=== PATIENT | female | born 1990 | race Caucasian/White ===

== ENCOUNTER 2016-12-13 15:09 | Emergency (ER) | payer BC, OTHER ==
--- NOTE | 2016-12-13 16:28 | EDM.PDOC ---
ED HPI GENERAL MEDICAL PROBLEM - General Chief Complaint: Gastrointestinal Problem Stated Complaint: VOMITING Time Seen by Provider: 12/13/16 15:25 Source of Information: Reports: Patient, Family History Limitations: Reports: No Limitations - History of Present Illness INITIAL COMMENTS - FREE TEXT/NARRATIVE: HISTORY AND PHYSICAL: History of present illness: [Patient comes to the emergency room complaining of nausea and vomiting for the past 3 days primarily in the mornings. 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 LMP 11/11/2016. questions if she is . She denies fever and chills, other symptoms of illness or infection, chest pain, shortness of breath and difficulty breathing. No cough, constipation or diarrhea. No burning with urination or blood in her urine. She is otherwise feeling well.] Review of systems: As per history of present illness and below otherwise all systems reviewed and negative. Past medical history: As per history of present illness and as reviewed below otherwise noncontributory. Surgical history: As per history of present illness and as reviewed below otherwise noncontributory. Social history: No reported history of drug or alcohol abuse. Family history: As per history of present illness and as reviewed below otherwise noncontributory. Physical exam: HEENT: Atraumatic, normocephalic. Oral mucous membranes are pink and moist. No tonsillar swelling erythema or exudate. Lungs: Clear to auscultation, breath sounds equal bilaterally. Heart: S1S2, regular rate and rhythm. Abdomen: Bowel sounds are normoactive throughout. Abdomen is soft nondistended, nontender. Negative for masses, guarding or rebound. Pelvis: Stable nontender. Genitourinary: Deferred. Rectal: Deferred. Extremities: Atraumatic, negative for cords or calf pain. Neurovascular unremarkable. Neuro: Awake, alert, oriented. Motor and sensory unremarkable throughout. Exam nonfocal. Diagnostics: [Urine ] Impression: [Nausea and vomiting] Plan: [Discussed with patient that her urine test is negative. Recommend she push fluids and avoid dairy. We reviewed that gastrointestinal viruses are occurring frequently in the community. Good handwashing, plenty of rest, push fluids symptoms should resolve without any complication. Follow-up with PCP. Strict return precautions are reviewed.] Definitive disposition and diagnosis as appropriate pending reevaluation and review of above. headache Pain Score (Numeric/FACES): 8 - Related Data Allergies Allergy/AdvReac Type Severity Reaction Status Date / Time No Known Allergies Allergy Verified 12/13/16 15:21 Home Meds: Home Meds . 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 Musculoskeletal History: Reports: None Neurological History: Reports: None Psychiatric History: Reports: None Endocrine/Metabolic History: Reports: None Hematologic History: Reports: None Immunologic History: Reports: None Oncologic (Cancer) History: Reports: None Dermatologic History: Reports: None - Infectious Disease History Infectious Disease History: Reports: None - Past Surgical History Head Surgeries/Procedures: Reports: None Social & Family History - Family History Family Medical History: Noncontributory - Tobacco Use Smoking Status *Q: Never Smoker - Caffeine Use Caffeine Use: Reports: None - Recreational Drug Use Recreational Drug Use: No ED ROS GENERAL - Review of Systems Review Of Systems: ROS reveals no pertinent complaints other than HPI. ED EXAM, GI/ABD - Physical Exam Exam: See Below Course - Vital Signs Last Recorded V/S: Last Vital Signs Temp 97.7 F 12/13/16 15:21 Pulse 112 H 12/13/16 15:21 Resp 18 12/13/16 15:21 BP 138/83 12/13/16 15:21 Pulse Ox 98 12/13/16 15:21 - Orders/Labs/Meds Labs: Laboratory Tests 12/13/16 Range/Units 15:42 Urine HCG, Qual NEGATIVE (NEGATIVE) Departure - Departure Time of Disposition: 14:30 Disposition: Home, Self-Care 01 Condition: Good Clinical Impression: Vomiting - Discharge Information Instructions: Nausea and Vomiting, Adult, [id number] Referrals: PCP,None [Primary Care Provider] - Forms: ED Department Discharge Additional Instructions: The following information is given to patients seen in the emergency department who are being discharged to home. This information is to outline your options for follow-up care. We provide all patients seen in our emergency department with a follow-up referral. The need for follow-up, as well as the timing and circumstances, are variable depending upon the specifics of your emergency department visit. If you don't have a primary care physician on staff, we will provide you with a referral. We always advise you to contact your personal physician following an emergency department visit to inform them of the circumstance of the visit and for follow-up with them and/or the need for any referrals to a consulting specialist. The emergency department will also refer you to a specialist when appropriate. This referral assures that you have the opportunity for follow-up care with a specialist. All of these measure are taken in an effort to provide you with optimal care, which includes your follow-up. Under all circumstances we always encourage you to contact your private physician who remains a resource for coordinating your care. When calling for follow-up care, please make the office aware that this follow-up is from your recent emergency room visit. If for any reason you are refused follow-up, please contact the [facility] emergency department at and asked to speak to the emergency department charge nurse. [facility] [address] [place] [id number] Establish care with a provider at the clinic listed above and follow-up there next week. Your test is negative. You are not . Push fluids, get plenty of rest. Return to ER as needed as discussed.
== END 2016-12-13 16:34 | disposition home or self-care (01) ==
LOC: MW.ED 15:09
DX: R11.2 Nausea with vomiting, unspecified (principal)
CPT/HCPCS: 81025; 99282; 99283

== ENCOUNTER 2017-03-08 21:11 | Emergency (ER) | payer BC, OTHER ==
--- NOTE | 2017-03-08 21:24 | EDM.PDOC ---
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 Past medical history: As per history of present illness and as reviewed below otherwise noncontributory. Surgical history: As per history of present illness and as reviewed below otherwise noncontributory. Social history: No reported history of drug or alcohol abuse. Family history: As per history of present illness and as reviewed below otherwise noncontributory. Physical exam: HEENT: Atraumatic, normocephalic, pupils reactive, negative for conjunctival pallor or scleral icterus, mucous membranes moist, throat clear, neck supple, nontender, trachea midline. Lungs: Clear to auscultation, breath sounds equal bilaterally, chest nontender. Heart: S1S2, regular, negative for clicks, rubs, or JVD. Abdomen: Soft, nondistended, nontender. Negative for masses or hepatosplenomegaly. Negative for costovertebral tenderness. Pelvis: Stable nontender. Genitourinary: Deferred. Rectal: Deferred. Extremities: Atraumatic, negative for cords or calf pain. Neurovascular unremarkable. Neuro: Awake, alert, oriented. Cranial nerves II through XII unremarkable. Cerebellum unremarkable. Motor and sensory unremarkable throughout. Exam nonfocal. Diagnostics: UA C&S ABO Rh CBC Therapeutics: None Impression: #1 first trimester bleeding #2 threatened Definitive disposition and diagnosis as appropriate pending reevaluation and review of above. 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 Musculoskeletal History: Reports: None Neurological History: Reports: None Psychiatric History: Reports: None Endocrine/Metabolic History: Reports: None Hematologic History: Reports: None Immunologic History: Reports: None Oncologic (Cancer) History: Reports: None Dermatologic History: Reports: None - Infectious Disease History Infectious Disease History: Reports: None - Past Surgical History Head Surgeries/Procedures: Reports: None Social & Family History - Family History Family Medical History: Noncontributory - Tobacco Use Smoking Status *Q: Never Smoker - Caffeine Use Caffeine Use: Reports: None - Recreational Drug Use Recreational Drug Use: No ED ROS GENERAL - Review of Systems Review Of Systems: ROS reveals no pertinent complaints other than HPI. ED EXAM, GENERAL - Physical Exam Exam: See Below (See dictation) Course - Vital Signs Last Recorded V/S: Last Vital Signs Temp 36.9 C 03/08/17 21:19 Pulse 128 H 03/08/17 21:19 Resp 14 03/08/17 21:19 BP 131/93 H 03/08/17 21:19 Pulse Ox 100 03/08/17 21:19 - Orders/Labs/Meds Orders: Active Orders 24 hr Category Date Time Status CULTURE URINE [RM] Stat Lab 03/08/17 21:34 Received Labs: Laboratory Tests 03/08/17 03/08/17 03/08/17 Range/Units 21:31 21:31 21:34 WBC 7.51 (4.0-11.0) K/uL RBC 4.61 (4.30-5.90) M/uL Hgb 9.7 L (12.0-16.0) g/dL Hct 29.7 L (36.0-46.0) % MCV 64.4 L (80.0-98.0) fL MCH 21.0 L (27.0-32.0) pg MCHC 32.7 (31.0-37.0) g/dL RDW Std Deviation 54.2 (28.0-62.0) fl RDW Coeff of Karl 24 H (11.0-15.0) % Plt Count 323 (150-400) K/uL MPV 9.50 (7.40-12.00) fL Neut % (Auto) 51.1 (48.0-80.0) % Lymph % (Auto) 39.4 (16.0-40.0) % [place] % (Auto) 8.0 (0.0-15.0) % Eos % (Auto) 1.2 (0.0-7.0) % Baso % (Auto) 0.3 (0.0-1.5) % Neut # (Auto) 3.8 (1.4-5.7) K/uL Lymph # (Auto) 3.0 H (0.6-2.4) K/uL [place] # (Auto) 0.6 (0.0-0.8) K/uL Eos # (Auto) 0.1 (0.0-0.7) K/uL Baso # (Auto) 0.0 (0.0-0.1) K/uL Nucleated RBC % 0.0 /100WBC Nucleated RBCs # 0 K/uL Urine Color DARK YELLOW Urine Appearance SLT CLOUDY Urine pH 6.0 (5.0-8.0) Ur Specific [place] 1.025 (1.001-1.035) Urine Protein TRACE (NEGATIVE) mg/dL Urine Glucose (UA) NEGATIVE (NEGATIVE) mg/dL Urine Ketones TRACE H (NEGATIVE) mg/dL Urine Occult Blood LARGE H (NEGATIVE) Urine Nitrite NEGATIVE (NEGATIVE) Urine Bilirubin NEGATIVE (NEGATIVE) Urine Urobilinogen 0.2 (<2.0) EU/dL Ur Leukocyte Esterase TRACE (NEGATIVE) Urine RBC 20-30 (0-2/HPF) Urine WBC 3-5 (0-5/HPF) Ur Epithelial Cells FEW (NONE-FEW) Calcium Oxalate Crystal MANY (NEGATIVE) Urine Bacteria FEW (NEGATIVE) Blood Type A POSITIVE Departure - Departure Time of Disposition: 22:28 Disposition: Home, Self-Care 01 Condition: Good Clinical Impression: Threatened - Discharge Information Referrals: Joseph Torres MD [Primary Care Provider] - Forms: ED Department Discharge Additional Instructions: The following information is given to patients seen in the emergency department who are being discharged to home. This information is to outline your options for follow-up care. We provide all patients seen in our emergency department with a follow-up referral. The need for follow-up, as well as the timing and circumstances, are variable depending upon the specifics of your emergency department visit. If you don't have a primary care physician on staff, we will provide you with a referral. We always advise you to contact your personal physician following an emergency department visit to inform them of the circumstance of the visit and for follow-up with them and/or the need for any referrals to a consulting specialist. The emergency department will also refer you to a specialist when appropriate. This referral assures that you have the opportunity for followup care with a specialist. All of these measure are taken in an effort to provide you with optimal care, which includes your followup. Under all circumstances we always encourage you to contact your private physician who remains a resource for coordinating your care. When calling for followup care, please make the office aware that this follow-up is from your recent emergency room visit. If for any reason you are refused follow-up, please contact the [facility] emergency department at and asked to speak to the emergency department charge nurse. Vaginal rest follow-up APICULTURIST he has discussed return as needed as discussed - My Orders Last 24 Hours: My Active Orders 03/08/17 21:34 CULTURE URINE [RM] Stat - Assessment/Plan Last 24 Hours: My Active Orders 03/08/17 21:34 CULTURE URINE [RM] Stat
== END 2017-03-08 23:04 | disposition home or self-care (01) ==
LOC: MW.ED 21:11
DX: O20.0 Threatened abortion (principal); Z3A.01 Less than 8 weeks gestation of pregnancy
CPT/HCPCS: 36415; 81001; 85025; 86900; 86901; 87086; 99284

== ENCOUNTER 2017-08-26 10:59 | Inpatient (IN) | payer BC ==
[2017-08-26] MEDS ORDERED: Carboprost Tromethamine 250 MCG/1 ML Amp IM PRN (11:51)
[2017-08-26] MEDS ORDERED: Methylergonovine 0.2 MG/1 ML Amp IM PRN (11:51)
[2017-08-26] MEDS ORDERED: Lidocaine 1% 50 ML MDV INJECT PRN (11:51)
[2017-08-26] MEDS ORDERED: Sodium Chloride 0.9% 10 ML Syringe FLUSH PRN (11:51)
[2017-08-26] MEDS ORDERED: Sodium Chloride 0.9% 2.5 ML Syringe FLUSH PRN (11:51)
[2017-08-26] MEDS ORDERED: Terbutaline 1 MG/ML SDV SUBCUT PRN (11:51)
[2017-08-26] MEDS ORDERED: Water For Irrigation,Sterile 1,000 ML Container IRR PRN (11:51)
[2017-08-26] MEDS ORDERED: Tranexamic Acid 1,000 MG in Sodium Chloride 0.9% 100 ML IV PRN (11:51)
[2017-08-26] MEDS ORDERED: Misoprostol 200 MCG Tab PO PRN (11:51)
[2017-08-26] MEDS ORDERED: Oxytocin/0.9 % Sodium Chloride 30 UNIT/500 ML BAG IV SCH ×2 (12:00)
[2017-08-26] MEDS ORDERED: Misoprostol 25 MCG (1/4 of 100 MCG) Tab PO SCH (12:00)
[2017-08-26] MEDS ORDERED: Ampicillin 2 GM in Sodium Chloride 0.9% 100 ML IV ONE (12:00)
[2017-08-26] MEDS: Lactated Ringers 1,000 ML IV SCH (12:06)
--- NOTE | 2017-08-26 12:48 | PCM.LDHP ---
L&D History of Present Illness - General Date of Service: 08/26/17 Admit Problem/Dx: Patient Status Order with Admit Dx/Problem 08/26/17 11:51 Patient Status [ADT] Routine Admission Diagnosis/Problem Admission Diagnosis/Problem Planned 08/26/17 12:44 27 yo EDC 09/23/2017 36 0/7 A+, RI, GBS pos bacteruria. SROM 08/22/2017 clear. Source of Information: Patient History Limitations: Reports: No Limitations - History of Present Illness Improves with: Reports: None Worsens with: Reports: None Associated Symptoms: Reports: N - Related Data Allergies/Adverse Reactions: Allergies Allergy/AdvReac Type Severity Reaction Status Date / Time No Known Allergies Allergy Verified 08/26/17 11:40 Home Medications: Home Meds Vit #108/Iron/FA [ One Tablet] 1 each PO DAILY 03/08/17 [ History] Past Medical History - Past Health History Medical/Surgical History: Denies Medical/Surgical History HEENT History: Reports: None Cardiovascular History: Reports: None Respiratory History: Reports: None Gastrointestinal History: Reports: None Genitourinary History: Reports: 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: Musculoskeletal History: Reports: None Neurological History: Reports: None Psychiatric History: Reports: None Endocrine/Metabolic History: Reports: None Hematologic History: Reports: None, Anemia, Other (See Below) Other Hematologic History: during Immunologic History: Reports: None Oncologic (Cancer) History: Reports: None Dermatologic History: Reports: None - Infectious Disease History Infectious Disease History: Reports: None - Past Surgical History Head Surgeries/Procedures: Reports: None Social & Family History - Family History Family Medical History: Noncontributory - Tobacco Use Smoking Status *Q: Never Smoker Second Hand Smoke Exposure: No - Caffeine Use Caffeine Use: Reports: None - Recreational Drug Use Recreational Drug Use: No H&P Review of Systems - Review of Systems: Review Of Systems: See Below General: Reports: No Symptoms HEENT: Reports: No Symptoms Pulmonary: Reports: No Symptoms Cardiovascular: Reports: No Symptoms Gastrointestinal: Reports: No Symptoms Genitourinary: Reports: No Symptoms Musculoskeletal: Reports: No Symptoms Skin: Reports: No Symptoms Psychiatric: Reports: No Symptoms Neurological: Reports: No Symptoms Hematologic/Lymphatic: Reports: No Symptoms Immunologic: Reports: No Symptoms L&D Exam - Exam Exam: See Below - Vital Signs Weight: 69.4 kg - OB Specific Contraction Intensity: Mild Movement: Active Heart Tones: Present Heart Tones per Min: 155 Heart Rate (FHR) Variability: Moderate (6-25 bmp) Presentation: Vertex Estimated Weight: 3000 - Sullivan Score Sullivan Score Cervix Position: Posterior Sullivan Score Consistency: Firm Sullivan Score Effacement: 31-50% Sullivan Score Dilation: Closed Sullivan Score 's Station: -3 Sullivan Score Total: 1 - Exam General: Alert, Oriented, Cooperative HEENT: Hearing Intact Lungs: Clear to Auscultation, Normal Respiratory Effort Cardiovascular: Regular Rate, Regular Rhythm, Normal S1, Normal S2 GI/Abdominal Exam: Normal Bowel Sounds, Soft, Non-Tender, No Organomegaly, No Distention, No Abnormal Bruit, No Mass, Pelvis Stable Rectal Exam: Deferred Genitourinary: Normal external exam, Normal bimanual exam, Cervical fluid (clear ) Back Exam: Normal Inspection, Full Range of Motion Extremities: Normal Inspection, Normal Range of Motion, Non-Tender, No Pedal Edema, Normal Capillary Refill Skin: Warm, Dry, Intact Neurological: Cranial Nerves Intact, Reflexes Equal Bilateral, Strength Equal Bilateral, Normal Gait, Normal Speech, Normal Tone Psychiatric: Alert, Normal Affect, Normal Mood - Patient Data Lab Results Last 24 hrs: Laboratory Results - last 24 hr 08/26/17 Range/Units 12:05 WBC 7.70 (4.0-11.0) K/uL RBC 4.31 (4.30-5.90) M/uL Hgb 11.1 L (12.0-16.0) g/dL Hct 34.2 L (36.0-46.0) % MCV 79.4 L (80.0-98.0) fL MCH 25.8 L (27.0-32.0) pg MCHC 32.5 (31.0-37.0) g/dL RDW Std Deviation 67.2 H (28.0-62.0) fl RDW Coeff of Karl 23 H (11.0-15.0) % Plt Count 225 (150-400) K/uL MPV 9.90 (7.40-12.00) fL Nucleated RBC % 0.0 /100WBC Nucleated RBCs # 0 K/uL Result Diagrams: 08/26/17 12:05 - Problem List (1) premature rupture of membranes (PPROM) with unknown onset of labor SNOMED Code(s): 03775565723996519 ICD Code: O42.919 - PRETRM GONZALES ROM, UNSP TIME BETW RUPT AND ONST LABR, UNSP TRI Status: Acute Priority: High Current Visit: Yes (2) Supervision of normal IUP (intrauterine ) in primigravida SNOMED Code(s): 76301637, 602143013, 673415757, 716683139 ICD Code: Z34.00 - ENCNTR FOR SUPRVSN OF NORMAL FIRST , UNSP TRIMESTER Status: Acute Priority: High Current Visit: Yes Qualifiers: Trimester: third trimester Qualified Code(s): Z34.03 - Encounter for supervision of normal first , third trimester Problem List Initiated/Reviewed/Updated: Yes Orders Last 24hrs: Active Orders 24 hr Category Date Time Status Patient Status [ADT] Routine ADT 08/26/17 11:51 Active Bedrest Bathroom Privileges [RC] ASDIRECTED Care 08/26/17 11:51 Active Communication Order [RC] ASDIRECTED Care 08/26/17 11:51 Active Communication Order [RC] ASDIRECTED Care 08/26/17 11:51 Active Communication Order [RC] ASDIRECTED Care 08/26/17 11:51 Active Heart Tones [RC] CONTINUOUS Care 08/26/17 11:51 Active Non Stress Test [RC] PER UNIT ROUTINE Care 08/26/17 11:51 Active May Shower [RC] ASDIRECTED Care 08/26/17 11:51 Active Notify Provider [RC] PRN Care 08/26/17 11:51 Active Notify Provider [RC] PRN Care 08/26/17 11:51 Active Notify Provider [RC] PRN Care 08/26/17 11:51 Active Notify Provider [RC] STAT Care 08/26/17 11:51 Active Oxygen Therapy [RC] ASDIRECTED Care 08/26/17 11:51 Active Up ad Leonie [RC] ASDIRECTED Care 08/26/17 11:51 Active Vaginal Exam [RC] PRN Care 08/26/17 11:51 Active Vaginal Exam [RC] PRN Care 08/26/17 11:51 Active Vital Signs [RC] PER UNIT ROUTINE Care 08/26/17 11:51 Active Vital Signs [RC] PER UNIT ROUTINE Care 08/26/17 11:51 Active Regular Diet [DIET] Diet 08/26/17 Lunch Active TYPE AND SCREEN [BBK] Routine Lab 08/26/17 12:05 Received Carboprost Tromethamine [Hemabate DS] Med 08/26/17 11:51 Active 250 mcg IM ASDIRECTED PRN Lactated Ringers [Ringers, Lactated] 1,000 ml Med 08/26/17 12:00 Active IV ASDIRECTED Lidocaine 1% [Xylocaine 1%] Med 08/26/17 11:51 Active 50 ml INJECT .ONCE PRN Methylergonovine [Methergine] Med 08/26/17 11:51 Active 0.2 mg IM ASDIRECTED PRN Nalbuphine [Nubain] Med 08/26/17 11:51 Active 10 mg IVPUSH Q1H PRN Oxytocin/0.9 % Sodium Chloride [Oxytocin 30 Unit/500 ML Med 08/26/17 12:00 Active -NS] 30 unit in 500 ml IV TITRATE Oxytocin/0.9 % Sodium Chloride [Oxytocin 30 Unit/500 ML Med 08/26/17 12:00 Active -NS] 30 unit in 500 ml IV TITRATE Sodium Chloride 0.9% [Saline Flush] Med 08/26/17 11:51 Active 10 ml FLUSH ASDIRECTED PRN Sodium Chloride 0.9% [Saline Flush] Med 08/26/17 11:51 Active 2.5 ml FLUSH ASDIRECTED PRN Terbutaline [Brethine] Med 08/26/17 11:51 Active 0.25 mg SUBCUT ASDIRECTED PRN Tranexamic Acid [Cyklokapron] 1,000 mg Med 08/26/17 11:51 Active Sodium Chloride 0.9% [Normal Saline] 100 ml IV ONETIME Water For Irrigation,Sterile [Sterile Water for Med 08/26/17 11:51 Active Irrigation] 1,000 ml IRR ASDIRECTED PRN miSOPROStol [Cytotec] Med 08/26/17 11:51 Active 200 mcg PO .ONCE PRN miSOPROStol [Cytotec] Med 08/26/17 12:00 Active 25 mcg PO .ONCE miSOPROStol [Cytotec] Med 08/26/17 11:51 Active 25 mcg PO Q4H PRN Scalp Electrode [WOMSER] Per Unit Routine Oth 08/26/17 11:51 Ordered Medication Administration Instruction [OM.PC] Q3H Oth 08/26/17 12:00 Ordered Peripheral IV Insertion Adult [OM.PC] Routine Oth 08/26/17 11:51 Ordered Resuscitation Status Routine Resus Stat 08/26/17 11:51 Ordered Medication Orders Carboprost Tromethamine (Hemabate Ds) 250 mcg IM ASDIRECTED PRN PRN Reason: Post Hemorrhage Lactated Ringer's (Ringers, Lactated) 1,000 mls @ 150 mls/hr IV ASDIRECTED NANCY Last Admin: 08/26/17 12:06 Dose: 999 mls/hr Oxytocin/Sodium Chloride (Oxytocin 30 Unit/500 Ml-Ns) 30 unit in 500 mls @ 999 mls/hr IV TITRATE NANCY Oxytocin/Sodium Chloride (Oxytocin 30 Unit/500 Ml-Ns) 30 unit in 500 mls @ 2 mls/hr IV TITRATE NANCY; Protocol Tranexamic Acid 1,000 mg/ (Sodium Chloride) 110 mls @ 660 mls/hr IV ONETIME PRN PRN Reason: Bleeding Lidocaine HCl (Xylocaine 1%) 50 ml INJECT .ONCE PRN PRN Reason: Laceration repair Methylergonovine Maleate (Methergine) 0.2 mg IM ASDIRECTED PRN PRN Reason: Post Hemorrhage Misoprostol (Cytotec) 200 mcg PO .ONCE PRN PRN Reason: Post Hemorrhage Misoprostol (Cytotec) 25 mcg PO .ONCE NANCY Last Admin: 08/26/17 12:18 Dose: 25 mcg Misoprostol (Cytotec) 25 mcg PO Q4H PRN PRN Reason: Cervical Ripening Nalbuphine HCl (Nubain) 10 mg IVPUSH Q1H PRN PRN Reason: Pain (severe 7-10) Sodium Chloride (Saline Flush) 10 ml FLUSH ASDIRECTED PRN PRN Reason: Keep Vein Open Sodium Chloride (Saline Flush) 2.5 ml FLUSH ASDIRECTED PRN PRN Reason: Keep Vein Open Sterile Water (Sterile Water For Irrigation) 1,000 ml IRR ASDIRECTED PRN PRN Reason: delivery Terbutaline Sulfate (Brethine) 0.25 mg SUBCUT ASDIRECTED PRN PRN Reason: Tacysystole Assessment/Plan Comment:: PPROM - IOL A: 27 yo EDC 09/23/2017 36 0/7 A+, RI, GBS pos bacteruria. PPROM 08/22/2017 clear. P: Admit, antibiotics Amp 2gm now for PPROM and GBS +, Cytotec po to pitocin, pain meds prn, anticipate . Dr Torres updated on pt status.
[2017-08-26] MEDS: Ampicillin 1 GM in Sodium Chloride 0.9% 50 ML IV SCH ×2 (17:00→21:09)
[2017-08-26] MEDS: Misoprostol 25 MCG (1/4 of 100 MCG) Tab PO PRN ×2 (17:03→21:42)
[2017-08-26] MEDS: Nalbuphine 10 MG/ML 10 ML MDV IVPUSH PRN (19:33)
[2017-08-27] MEDS: Ampicillin 1 GM in Sodium Chloride 0.9% 50 ML IV SCH ×4 (01:22→22:40)
[2017-08-27] MEDS: Nalbuphine 10 MG/ML 10 ML MDV IVPUSH PRN ×2 (02:04→08:10)
[2017-08-27] MEDS: Lactated Ringers 1,000 ML IV SCH (04:28)
[2017-08-27] MEDS ORDERED: Benzocaine/Menthol 20%-0.5% Spray 78 GM Cannister TOP PRN (13:23)
[2017-08-27] MEDS ORDERED: Lanolin 100% Cream 7 GM Tube TOP PRN (13:23)
[2017-08-27] MEDS ORDERED: Docusate Sodium 100 MG Cap PO PRN (13:23)
[2017-08-27] MEDS ORDERED: oxyCODONE 5 MG Tab PO PRN (13:23)
[2017-08-27] MEDS ORDERED: Bisacodyl 10 MG Supp RECTAL PRN (13:23)
[2017-08-27] MEDS ORDERED: Acetaminophen 500 MG Tab PO PRN ×2 (13:23)
[2017-08-27] MEDS ORDERED: Ibuprofen 800 MG Tab PO PRN (13:23)
[2017-08-27] MEDS ORDERED: Ibuprofen 400 MG Tab PO PRN (13:23)
[2017-08-27] MEDS ORDERED: Witch Hazel Medicated Pads 40/Jar TOP PRN (13:23)
--- NOTE | 2017-08-27 13:29 | PCM.DEL ---
L & D Note - General Info Date of Service: 08/27/17 Mother's Due Date: 09/23/17 - Delivery Note Labor: Spontaneous, Augmented by Oxytocin Cervical Ripening Method: Misoprostil Delivery Outcome: Livebirth Delivery Method: Spontaneous Vaginal Delivery-Single Infant Delivery Mode: Spontaneous Presentation: Vertex Nuchal Cord: None Anesthesia Type: Other (see below) (Nubain) Amniotic Fluid Description: Clear Episiotomy Type: None Laceration: None Placenta: Intact, Spontaneous Cord: 3 Vessels Estimated Blood Loss: 100 Resuscitation Needed: No Score 1 min: 9 Score 5 min: 9 Second Stage Interventions: Reports: Pushing, Pulls Own Legs Back Induction Criteria - Augmentation Estimated Pelvis: Reports: Adequate Weight Estimated:: Reports: AGA Reassuring Monitoring Strip: Yes Absence of Tachy Systole: Yes - General Info Date of Service: 08/27/17 Admission Dx/Problem (Free Text): Patient Status Order with Admit Dx/Problem 08/26/17 11:51 Patient Status [ADT] Routine Admission Diagnosis/Problem Admission Diagnosis/Problem Planned 08/26/17 12:44 27 yo EDC 09/23/2017 36 0/7 A+, RI, GBS pos bacteruria. SROM 08/22/2017 clear. Functional Status: Reports: Pain Controlled, Tolerating Diet - Review of Systems General: Reports: No Symptoms HEENT: Reports: No Symptoms Pulmonary: Reports: No Symptoms Cardiovascular: Reports: No Symptoms Gastrointestinal: Reports: No Symptoms Genitourinary: Reports: No Symptoms Musculoskeletal: Reports: No Symptoms Skin: Reports: No Symptoms Neurological: Reports: No Symptoms Psychiatric: Reports: No Symptoms - Patient Data Weight - Most Recent: 69.4 kg I&O - Last 24 Hours: Intake & Output 08/26/17 08/27/17 08/27/17 22:59 06:59 14:59 Intake Total 50 Balance 50 Lab Results Last 24 Hours: Laboratory Results - last 24 hr 08/27/17 Range/Units 06:00 WBC 13.91 H (4.0-11.0) K/uL RBC 4.42 (4.30-5.90) M/uL Hgb 11.5 L (12.0-16.0) g/dL Hct 34.7 L (36.0-46.0) % MCV 78.5 L (80.0-98.0) fL MCH 26.0 L (27.0-32.0) pg MCHC 33.1 (31.0-37.0) g/dL RDW Std Deviation 65.2 H (28.0-62.0) fl RDW Coeff of Karl 23 H (11.0-15.0) % Plt Count 221 (150-400) K/uL MPV 9.90 (7.40-12.00) fL Neut % (Auto) 82.8 H (48.0-80.0) % Lymph % (Auto) 11.1 L (16.0-40.0) % [place] % (Auto) 5.9 (0.0-15.0) % Eos % (Auto) 0.1 (0.0-7.0) % Baso % (Auto) 0.1 (0.0-1.5) % Neut # (Auto) 11.5 H (1.4-5.7) K/uL Lymph # (Auto) 1.6 (0.6-2.4) K/uL Bourbon # (Auto) 0.8 (0.0-0.8) K/uL Eos # (Auto) 0.0 (0.0-0.7) K/uL Baso # (Auto) 0.0 (0.0-0.1) K/uL Nucleated RBC % 0.0 /100WBC Nucleated RBCs # 0 K/uL Med Orders - Current: Current Medications Acetaminophen (Tylenol Extra Strength) 500 mg PO Q4H PRN PRN Reason: Pain Acetaminophen (Tylenol Extra Strength) 1,000 mg PO Q4H PRN PRN Reason: Pain Benzocaine/Menthol (Dermoplast Pain Relief 20%-0.5% Kane) 78 gm TOP ASDIRECTED PRN PRN Reason: Perineal Comfort Measure Bisacodyl (Dulcolax) 10 mg RECTAL .ONCE PRN PRN Reason: Constipation Docusate Sodium (Colace) 100 mg PO BID PRN PRN Reason: Constipation Emollient Ointment (Lansinoh Hpa) 0 gm TOP ASDIRECTED PRN PRN Reason: Sore Nipples Ibuprofen (Motrin) 400 mg PO Q4H PRN PRN Reason: Pain Ibuprofen (Motrin) 800 mg PO Q6H PRN PRN Reason: Pain Oxycodone HCl (Oxycodone) 5 mg PO Q2H PRN PRN Reason: Pain Witch [place] (Tucks) 1 pad TOP ASDIRECTED PRN PRN Reason: comfort care Discontinued Medications Carboprost Tromethamine (Hemabate Ds) 250 mcg IM ASDIRECTED PRN PRN Reason: Post Hemorrhage Ampicillin Sodium 2 gm/ Sodium (Chloride) 100 mls @ 200 mls/hr IV ONETIME ONE Stop: 08/26/17 12:29 Last Admin: 08/26/17 12:15 Dose: 200 mls/hr Lactated Ringer's (Ringers, Lactated) 1,000 mls @ 150 mls/hr IV ASDIRECTED NANCY Last Admin: 08/27/17 04:28 Dose: 150 mls/hr Oxytocin/Sodium Chloride (Oxytocin 30 Unit/500 Ml-Ns) 30 unit in 500 mls @ 999 mls/hr IV TITRATE [facility] Oxytocin/Sodium Chloride (Oxytocin 30 Unit/500 Ml-Ns) 30 unit in 500 mls @ 2 mls/hr IV TITRATE [facility]; Protocol Last Titration: 08/27/17 12:46 Dose: 8 munits/min, 8 mls/hr Tranexamic Acid 1,000 mg/ (Sodium Chloride) 110 mls @ 660 mls/hr IV ONETIME PRN PRN Reason: Bleeding Ampicillin Sodium 1 gm/ Sodium (Chloride) 50 mls @ 100 mls/hr IV Q4H [facility] Last Admin: 08/27/17 09:00 Dose: 100 mls/hr Lidocaine HCl (Xylocaine 1%) 50 ml INJECT .ONCE PRN PRN Reason: Laceration repair Methylergonovine Maleate (Methergine) 0.2 mg IM ASDIRECTED PRN PRN Reason: Post Hemorrhage Misoprostol (Cytotec) 200 mcg PO .ONCE PRN PRN Reason: Post Hemorrhage Misoprostol (Cytotec) 25 mcg PO .ONCE NANCY Last Admin: 08/26/17 12:18 Dose: 25 mcg Misoprostol (Cytotec) 25 mcg PO Q4H PRN PRN Reason: Cervical Ripening Last Admin: 08/26/17 21:42 Dose: 25 mcg Nalbuphine HCl (Nubain) 10 mg IVPUSH Q1H PRN PRN Reason: Pain (severe 7-10) Last Admin: 08/27/17 08:10 Dose: 10 mg Sodium Chloride (Saline Flush) 10 ml FLUSH ASDIRECTED PRN PRN Reason: Keep Vein Open Sodium Chloride (Saline Flush) 2.5 ml FLUSH ASDIRECTED PRN PRN Reason: Keep Vein Open Sterile Water (Sterile Water For Irrigation) 1,000 ml IRR ASDIRECTED PRN PRN Reason: delivery Terbutaline Sulfate (Brethine) 0.25 mg SUBCUT ASDIRECTED PRN PRN Reason: Tacysystole - Exam General: Alert, Oriented, Cooperative, No Acute Distress Lungs: Normal Respiratory Effort GI/Abdominal Exam: Normal Bowel Sounds, Soft, Non-Tender, No Organomegaly, No Distention, No Abnormal Bruit, No Mass, Pelvis Stable (Female) Exam: Normal External Exam, Normal Bimanual Exam, Vaginal Bleeding Back Exam: Normal Inspection, Full Range of Motion Extremities: Normal Inspection, Normal Range of Motion, Non-Tender, No Pedal Edema, Normal Capillary Refill Skin: Warm, Dry, Intact Wound/Incisions: Healing Well Neurological: No New Focal Deficit, Normal Speech, Normal Tone, Strength Equal Bilateral Psy/Mental Status: Alert, Normal Affect, Normal Mood - Problem List & Annotations (1) premature rupture of membranes (PPROM) with unknown onset of labor SNOMED Code(s): 35809550473453084 Code(s): O42.919 - PRETRM GONZALES ROM, UNSP TIME BETW RUPT AND ONST LABR, UNSP TRI Status: Acute Priority: High Current Visit: Yes (2) Supervision of normal IUP (intrauterine ) in primigravida SNOMED Code(s): 89118002, 290713831, 111589590, 905756538 Code(s): Z34.00 - ENCNTR FOR SUPRVSN OF NORMAL FIRST , UNSP TRIMESTER Status: Acute Priority: High Current Visit: Yes Qualifiers: Trimester: third trimester Qualified Code(s): Z34.03 - Encounter for supervision of normal first , third trimester (3) (normal spontaneous vaginal delivery) SNOMED Code(s): 38679726 Code(s): O80 - ENCOUNTER FOR FULL-TERM UNCOMPLICATED DELIVERY Status: Acute Priority: High Current Visit: Yes - Problem List Review Problem List Initiated/Reviewed/Updated: Yes - My Orders Last 24 Hours: My Active Orders 08/27/17 13:23 May Shower [RC] ASDIRECTED Up ad Leonie [RC] ASDIRECTED Vital Signs [RC] PER UNIT ROUTINE Acetaminophen [Tylenol Extra Strength] 1,000 mg PO Q4H PRN Acetaminophen [Tylenol Extra Strength] 500 mg PO Q4H PRN Benzocaine/Menthol [Dermoplast Pain Relief 20%-0.5% Kane] 78 gm TOP ASDIRECTED PRN Bisacodyl [Dulcolax] 10 mg RECTAL .ONCE PRN Docusate Sodium [Colace] 100 mg PO BID PRN Ibuprofen [Motrin] 400 mg PO Q4H PRN Ibuprofen [Motrin] 800 mg PO Q6H PRN Lanolin [Lansinoh HPA] See Dose Instructions TOP ASDIRECTED PRN Witch [place] [Tucks] 1 pad TOP ASDIRECTED PRN oxyCODONE 5 mg PO Q2H PRN Assess Lochia [WOMSER] Per Unit Routine Assess Uterine Involution [WOMSER] Per Unit Routine Peripheral IV Discontinue [OM.PC] Routine Resuscitation Status Routine 08/27/17 13:24 Patient Status [ADT] Routine 08/27/17 Dinner Regular Diet [DIET] - Plan Plan:: PPROM - IOL A: 27 yo EDC 09/23/2017 36 0/7 A+, RI, GBS pos bacteruria. PPROM 08/22/2017 clear. P: Admit, antibiotics Amp 2gm now for PPROM and GBS +, Cytotec po to pitocin, pain meds prn, anticipate . Dr Torres updated on pt status. Delivery A: of viable female, APGARS 9/9, Wt: 5lb 9oz, Intact perineum, EBL 100cc, Mother and baby left in stable condition for recovery.
--- NOTE | 2017-08-28 12:47 | PCM.PNPP ---
- General Info Date of Service: 08/28/17 Admission Dx/Problem (Free Text): Patient Status Order with Admit Dx/Problem 08/26/17 11:51 Patient Status [ADT] Routine Admission Diagnosis/Problem Admission Diagnosis/Problem Planned 08/26/17 12:44 27 yo EDC 09/23/2017 36 0/7 A+, RI, GBS pos bacteruria. SROM 08/22/2017 clear. Functional Status: Reports: Pain Controlled, Tolerating Diet, Ambulating, Urinating - Review of Systems General: Reports: No Symptoms HEENT: Reports: No Symptoms Pulmonary: Reports: No Symptoms Cardiovascular: Reports: No Symptoms Gastrointestinal: Reports: No Symptoms Genitourinary: Reports: No Symptoms Musculoskeletal: Reports: No Symptoms Skin: Reports: No Symptoms Neurological: Reports: No Symptoms Psychiatric: Reports: No Symptoms - General Info Date of Service: 08/28/17 - Patient Data Vital Signs - Most Recent: Last Vital Signs Temp 36.9 C 08/28/17 04:44 Pulse 76 08/28/17 04:44 Resp 18 08/28/17 04:44 BP 117/57 L 08/28/17 04:44 Pulse Ox 99 08/28/17 04:44 Weight - Most Recent: 69.4 kg Med Orders - Current: Current Medications Acetaminophen (Tylenol Extra Strength) 500 mg PO Q4H PRN PRN Reason: Pain Acetaminophen (Tylenol Extra Strength) 1,000 mg PO Q4H PRN PRN Reason: Pain Benzocaine/Menthol (Dermoplast Pain Relief 20%-0.5% Moore) 78 gm TOP ASDIRECTED PRN PRN Reason: Perineal Comfort Measure Bisacodyl (Dulcolax) 10 mg RECTAL .ONCE PRN PRN Reason: Constipation Docusate Sodium (Colace) 100 mg PO BID PRN PRN Reason: Constipation Emollient Ointment (Lansinoh Hpa) 0 gm TOP ASDIRECTED PRN PRN Reason: Sore Nipples Ibuprofen (Motrin) 400 mg PO Q4H PRN PRN Reason: Pain Ibuprofen (Motrin) 800 mg PO Q6H PRN PRN Reason: Pain Oxycodone HCl (Oxycodone) 5 mg PO Q2H PRN PRN Reason: Pain Witch [place] (Tucks) 1 pad TOP ASDIRECTED PRN PRN Reason: comfort care Discontinued Medications Carboprost Tromethamine (Hemabate Ds) 250 mcg IM ASDIRECTED PRN PRN Reason: Post Hemorrhage Ampicillin Sodium 2 gm/ Sodium (Chloride) 100 mls @ 200 mls/hr IV ONETIME ONE Stop: 08/26/17 12:29 Last Admin: 08/26/17 12:15 Dose: 200 mls/hr Lactated Ringer's (Ringers, Lactated) 1,000 mls @ 150 mls/hr IV ASDIRECTED NANCY Last Admin: 08/27/17 04:28 Dose: 150 mls/hr Oxytocin/Sodium Chloride (Oxytocin 30 Unit/500 Ml-Ns) 30 unit in 500 mls @ 999 mls/hr IV TITRATE NANCY Oxytocin/Sodium Chloride (Oxytocin 30 Unit/500 Ml-Ns) 30 unit in 500 mls @ 2 mls/hr IV TITRATE NANCY; Protocol Last Titration: 08/27/17 12:46 Dose: 8 munits/min, 8 mls/hr Tranexamic Acid 1,000 mg/ (Sodium Chloride) 110 mls @ 660 mls/hr IV ONETIME PRN PRN Reason: Bleeding Ampicillin Sodium 1 gm/ Sodium (Chloride) 50 mls @ 100 mls/hr IV Q4H NANCY Last Admin: 08/27/17 22:40 Dose: Not Given Lidocaine HCl (Xylocaine 1%) 50 ml INJECT .ONCE PRN PRN Reason: Laceration repair Methylergonovine Maleate (Methergine) 0.2 mg IM ASDIRECTED PRN PRN Reason: Post Hemorrhage Misoprostol (Cytotec) 200 mcg PO .ONCE PRN PRN Reason: Post Hemorrhage Misoprostol (Cytotec) 25 mcg PO .ONCE NANCY Last Admin: 08/26/17 12:18 Dose: 25 mcg Misoprostol (Cytotec) 25 mcg PO Q4H PRN PRN Reason: Cervical Ripening Last Admin: 08/26/17 21:42 Dose: 25 mcg Nalbuphine HCl (Nubain) 10 mg IVPUSH Q1H PRN PRN Reason: Pain (severe 7-10) Last Admin: 08/27/17 08:10 Dose: 10 mg Sodium Chloride (Saline Flush) 10 ml FLUSH ASDIRECTED PRN PRN Reason: Keep Vein Open Sodium Chloride (Saline Flush) 2.5 ml FLUSH ASDIRECTED PRN PRN Reason: Keep Vein Open Sterile Water (Sterile Water For Irrigation) 1,000 ml IRR ASDIRECTED PRN PRN Reason: delivery Terbutaline Sulfate (Brethine) 0.25 mg SUBCUT ASDIRECTED PRN PRN Reason: Tacysystole - Interaction Disposition, : in Room with Family Interaction: Holding Infant Infant Feeding: Attempted ; Nursed Fair/Poor, Bottle Fed Support Person: - Recovery Exam Fundal Tone: Firm Fundal Level: At Umbilicus Fundal Placement: Midline Lochia Amount: Scant Lochia Color: Rubra/Red Bladder Status: Voiding - Exam General: Alert, Oriented, Cooperative, No Acute Distress Lungs: Normal Respiratory Effort GI/Abdominal Exam: Soft, Non-Tender Extremities: Normal Inspection, Normal Range of Motion, Non-Tender, No Pedal Edema, Normal Capillary Refill Skin: Warm, Dry, Intact Wound/Incisions: Healing Well Neurological: No New Focal Deficit, Normal Gait, Normal Speech, Normal Tone, Strength Equal Bilateral Psy/Mental Status: Alert, Normal Affect, Normal Mood - Problem List & Annotations (1) premature rupture of membranes (PPROM) with unknown onset of labor SNOMED Code(s): 91584162312390869 Code(s): O42.919 - PRETRM GONZALES ROM, UNSP TIME BETW RUPT AND ONST LABR, UNSP TRI Status: Acute Priority: High Current Visit: Yes (2) Supervision of normal IUP (intrauterine ) in primigravida SNOMED Code(s): 25133602, 606608719, 182574550, 286162267 Code(s): Z34.00 - ENCNTR FOR SUPRVSN OF NORMAL FIRST , UNSP TRIMESTER Status: Acute Priority: High Current Visit: Yes Qualifiers: Trimester: third trimester Qualified Code(s): Z34.03 - Encounter for supervision of normal first , third trimester (3) (normal spontaneous vaginal delivery) SNOMED Code(s): 75575928 Code(s): O80 - ENCOUNTER FOR FULL-TERM UNCOMPLICATED DELIVERY Status: Acute Priority: High Current Visit: Yes - Problem List Review Problem List Initiated/Reviewed/Updated: Yes - My Orders Last 24 Hours: My Active Orders 08/27/17 13:23 May Shower [RC] ASDIRECTED Up ad Leonie [RC] ASDIRECTED Vital Signs [RC] PER UNIT ROUTINE Acetaminophen [Tylenol Extra Strength] 1,000 mg PO Q4H PRN Acetaminophen [Tylenol Extra Strength] 500 mg PO Q4H PRN Benzocaine/Menthol [Dermoplast Pain Relief 20%-0.5% Moore] 78 gm TOP ASDIRECTED PRN Bisacodyl [Dulcolax] 10 mg RECTAL .ONCE PRN Docusate Sodium [Colace] 100 mg PO BID PRN Ibuprofen [Motrin] 400 mg PO Q4H PRN Ibuprofen [Motrin] 800 mg PO Q6H PRN Lanolin [Lansinoh HPA] See Dose Instructions TOP ASDIRECTED PRN Witch [place] [Tucks] 1 pad TOP ASDIRECTED PRN oxyCODONE 5 mg PO Q2H PRN Assess Lochia [WOMSER] Per Unit Routine Assess Uterine Involution [WOMSER] Per Unit Routine Peripheral IV Discontinue [OM.PC] Routine Resuscitation Status Routine 08/27/17 13:24 Patient Status [ADT] Routine 08/27/17 Dinner Regular Diet [DIET] - Plan Plan:: PPROM - IOL A: 27 yo EDC 09/23/2017 36 0/7 A+, RI, GBS pos bacteruria. PPROM 08/22/2017 clear. P: Admit, antibiotics Amp 2gm now for PPROM and GBS +, Cytotec po to pitocin, pain meds prn, anticipate . Dr Torres updated on pt status. Delivery A: of viable female, APGARS 9/9, Wt: 5lb 9oz, Intact perineum, EBL 100cc, Mother and baby left in stable condition for recovery. PPD#1 A: VSS, AF, FF, lochia scant, stable, bonding well with . Working on breast feeding. P: Routine pp plan of care
--- NOTE | 2017-08-29 08:16 | PCM.PNPP ---
- General Info Date of Service: 08/29/17 Functional Status: Reports: Pain Controlled - Review of Systems General: Reports: No Symptoms HEENT: Reports: No Symptoms Pulmonary: Reports: No Symptoms Cardiovascular: Reports: No Symptoms Gastrointestinal: Reports: No Symptoms Genitourinary: Reports: No Symptoms Musculoskeletal: Reports: No Symptoms Skin: Reports: No Symptoms Neurological: Reports: No Symptoms Psychiatric: Reports: No Symptoms - General Info Date of Service: 08/29/17 - Patient Data Vital Signs - Most Recent: Last Vital Signs Temp 37.2 C 08/28/17 20:00 Pulse 72 08/28/17 20:00 Resp 18 08/28/17 20:00 BP 118/73 08/28/17 20:00 Pulse Ox 98 08/28/17 20:00 Weight - Most Recent: 69.4 kg Med Orders - Current: Current Medications Acetaminophen (Tylenol Extra Strength) 500 mg PO Q4H PRN PRN Reason: Pain Acetaminophen (Tylenol Extra Strength) 1,000 mg PO Q4H PRN PRN Reason: Pain Benzocaine/Menthol (Dermoplast Pain Relief 20%-0.5% Taylor) 78 gm TOP ASDIRECTED PRN PRN Reason: Perineal Comfort Measure Bisacodyl (Dulcolax) 10 mg RECTAL .ONCE PRN PRN Reason: Constipation Docusate Sodium (Colace) 100 mg PO BID PRN PRN Reason: Constipation Emollient Ointment (Lansinoh Hpa) 0 gm TOP ASDIRECTED PRN PRN Reason: Sore Nipples Ibuprofen (Motrin) 400 mg PO Q4H PRN PRN Reason: Pain Ibuprofen (Motrin) 800 mg PO Q6H PRN PRN Reason: Pain Last Admin: 08/29/17 06:47 Dose: 800 mg Oxycodone HCl (Oxycodone) 5 mg PO Q2H PRN PRN Reason: Pain Witch [place] (Tucks) 1 pad TOP ASDIRECTED PRN PRN Reason: comfort care Discontinued Medications Carboprost Tromethamine (Hemabate Ds) 250 mcg IM ASDIRECTED PRN PRN Reason: Post Hemorrhage Ampicillin Sodium 2 gm/ Sodium (Chloride) 100 mls @ 200 mls/hr IV ONETIME ONE Stop: 08/26/17 12:29 Last Admin: 08/26/17 12:15 Dose: 200 mls/hr Lactated Ringer's (Ringers, Lactated) 1,000 mls @ 150 mls/hr IV ASDIRECTED NANCY Last Admin: 08/27/17 04:28 Dose: 150 mls/hr Oxytocin/Sodium Chloride (Oxytocin 30 Unit/500 Ml-Ns) 30 unit in 500 mls @ 999 mls/hr IV TITRATE NANCY Oxytocin/Sodium Chloride (Oxytocin 30 Unit/500 Ml-Ns) 30 unit in 500 mls @ 2 mls/hr IV TITRATE NANCY; Protocol Last Titration: 08/27/17 12:46 Dose: 8 munits/min, 8 mls/hr Tranexamic Acid 1,000 mg/ (Sodium Chloride) 110 mls @ 660 mls/hr IV ONETIME PRN PRN Reason: Bleeding Ampicillin Sodium 1 gm/ Sodium (Chloride) 50 mls @ 100 mls/hr IV Q4H [facility] Last Admin: 08/27/17 22:40 Dose: Not Given Lidocaine HCl (Xylocaine 1%) 50 ml INJECT .ONCE PRN PRN Reason: Laceration repair Methylergonovine Maleate (Methergine) 0.2 mg IM ASDIRECTED PRN PRN Reason: Post Hemorrhage Misoprostol (Cytotec) 200 mcg PO .ONCE PRN PRN Reason: Post Hemorrhage Misoprostol (Cytotec) 25 mcg PO .ONCE NANCY Last Admin: 08/26/17 12:18 Dose: 25 mcg Misoprostol (Cytotec) 25 mcg PO Q4H PRN PRN Reason: Cervical Ripening Last Admin: 08/26/17 21:42 Dose: 25 mcg Nalbuphine HCl (Nubain) 10 mg IVPUSH Q1H PRN PRN Reason: Pain (severe 7-10) Last Admin: 08/27/17 08:10 Dose: 10 mg Sodium Chloride (Saline Flush) 10 ml FLUSH ASDIRECTED PRN PRN Reason: Keep Vein Open Sodium Chloride (Saline Flush) 2.5 ml FLUSH ASDIRECTED PRN PRN Reason: Keep Vein Open Sterile Water (Sterile Water For Irrigation) 1,000 ml IRR ASDIRECTED PRN PRN Reason: delivery Terbutaline Sulfate (Brethine) 0.25 mg SUBCUT ASDIRECTED PRN PRN Reason: Tacysystole - Interaction Disposition, : in Room with Family Infant Interaction: Holding Infant Infant Feeding: Attempted ; Nursed Fair/Poor, Bottle Fed Infant Support Person: - Recovery Exam Fundal Tone: Firm Fundal Level: At Umbilicus Fundal Placement: Midline Lochia Amount: Scant Lochia Color: Rubra/Red Perineum Description: Intact, Minimal Bruising/Swelling Bladder Status: Voiding Urinary Elimination: Voided - Exam General: Alert, Oriented HEENT: Pupils Equal Neck: Supple Lungs: Clear to Auscultation, Normal Respiratory Effort Cardiovascular: Regular Rate, Regular Rhythm GI/Abdominal Exam: Normal Bowel Sounds, Soft, Non-Tender, No Organomegaly, No Distention, No Abnormal Bruit, No Mass, Pelvis Stable Extremities: Normal Inspection, Normal Range of Motion, Non-Tender, No Pedal Edema, Normal Capillary Refill Skin: Warm, Dry, Intact Wound/Incisions: Healing Well Neurological: No New Focal Deficit Psy/Mental Status: Alert, Normal Affect, Normal Mood - Problem List Review Problem List Initiated/Reviewed/Updated: Yes - Plan Plan:: PPROM - IOL A: 27 yo EDC 09/23/2017 36 0/7 A+, RI, GBS pos bacteruria. PPROM 08/22/2017 clear. P: Admit, antibiotics Amp 2gm now for PPROM and GBS +, Cytotec po to pitocin, pain meds prn, anticipate . Dr Torres updated on pt status. Delivery A: of viable female, APGARS 9/9, Wt: 5lb 9oz, Intact perineum, EBL 100cc, Mother and baby left in stable condition for recovery. PPD#1 A: VSS, AF, FF, lochia scant, stable, bonding well with . Working on breast feeding. P: Routine pp plan of care
== END 2017-08-29 12:49 | disposition home or self-care (01) | DRG 560 ==
LOC: MW.OBCHECK 10:59 → MW.OB 11:08 → MW.OBCHECK 11:51 → MW.OB 11:51 → OBSVTOIN 08-27 13:06 → MW.OB 08-27 17:00
PROVIDERS: ADMIT Obstetrics & Gynecology; ATTEND Obstetrics & Gynecology
PROC: 10E0XZZ Delivery of Products of Conception, External Approach (ICD-10-PCS; principal; 2017-08-27)
DX: O42.113 Preterm premature rupture of membranes, onset of labor more than 24 hours following rupture, third trimester (principal); O99.824 Streptococcus B carrier state complicating childbirth; Z3A.36 36 weeks gestation of pregnancy; Z37.0 Single live birth
CPT/HCPCS: 36415; 59025; 59409; 85025; 85027; 86850; 86900; 86901; A9270-GY; J0290; J2300; J2590; J7030; J7050; J7120

== ENCOUNTER 2019-03-17 19:55 | Emergency (ER) | payer BC ==
--- NOTE | 2019-03-17 21:20 | EDM.PDOC ---
<Ruby Azul - Last Filed: 03/17/19 21:20> ED HPI GENERAL MEDICAL PROBLEM - General Chief Complaint: SENIOR QUANTITY SURVEYOR Problem Stated Complaint: BLEEDING Time Seen by Provider: 03/17/19 20:45 Source of Information: Reports: Patient, Family History Limitations: Reports: No Limitations, Language Barrier - History of Present Illness INITIAL COMMENTS - FREE TEXT/NARRATIVE: HISTORY AND PHYSICAL: History of present illness: Patient does not speak [place] as her primary language but does have her with her for translation. Make Up Operator was offered but patient declines. Patient is a 29-year-old female who presents to the ED today with concern of spotting in early . Patient states this afternoon she began having pink spotting only when she wipes and has not had to use a pad. Patient states she is also having some lower abdominal cramping and back pain. Patient denies any other symptoms or concerns. Patient states she has not yet had an ultrasound and has not yet seen any OBGYN provider does have an appointment in 2 weeks for her first appointment but is unsure who the provider is. Patient denies fever, chills, chest pain, shortness of breath, or cough. Denies headache, neck stiff ness, change in vision, syncope, or near syncope. Denies nausea, vomiting, diarrhea, constipation, or dysuria. Has not noted any blood in urine or stool. Patient has been eating and drinking appropriately. Review of systems: As per history of present illness and below otherwise all systems reviewed and negative. Past medical history: As per history of present illness and as reviewed below otherwise noncontributory. Surgical history: As per history of present illness and as reviewed below otherwise noncontributory. Social history: See social history for further information Family history: As per history of present illness and as reviewed below otherwise noncontributory. Physical exam: General: Patient is alert, oriented, and in no acute distress. Patient laying comfortably on exam table. HEENT: Atraumatic, normocephalic, pupils equal and reactive bilaterally, negative for conjunctival pallor or scleral icterus, mucous membranes moist, TMs normal bilaterally, throat clear, neck supple, nontender, trachea midline. No drooling or trismus noted. No meningeal signs. No hot potato voice noted. Lungs: Clear to auscultation, breath sounds equal bilaterally, chest nontender. Heart: S1S2, regular rate and rhythm without overt murmur Abdomen: Soft, nondistended, nontender. Negative for masses or hepatosplenomegaly. Negative for costovertebral tenderness. Pelvis: Stable nontender. Genitourinary: Deferred. Rectal: Deferred. Skin: Intact, warm, dry. No lesions or rashes noted. Extremities: Atraumatic, negative for cords or calf pain. Neurovascular unremarkable. Neuro: Awake, alert, oriented. Cranial nerves II through XII unremarkable. Cerebellum unremarkable. Motor and sensory unremarkable throughout. Exam nonfocal. Notes: Discussed importance for follow-up with OBGYN provider. Voices understanding and is agreeable to plan of care. Denies any further questions or concerns at this time. Diagnostics: CBC, CMP, UA, serum hcg quant/qual, Blood type, TVUS Therapeutics: None Prescription: Macrobid Impression: Vaginal bleeding in , first trimester Urinary Tract Infection Plan: 1. Please start and/or continue to take your vitamin with folic acid once daily. 2. Pelvic rest until cleared by your OBGYN (no tampons, sex, etc...) 3. Tylenol as needed for pain management. This is safe to use in . 4. Follow up with your SENIOR QUANTITY SURVEYOR as discussed. Return to the ED as needed and as discussed. Definitive disposition and diagnosis as appropriate pending reevaluation and review of above. lower back Pain Score (Numeric/FACES): 8 - Related Data Allergies Allergy/AdvReac Type Severity Reaction Status Date / Time No Known Allergies Allergy Verified 03/17/19 20:37 Home Meds: Home Meds Mv-Mn/Iron/FA/Herbal/Digestive [ One Tablet] 1 each PO DAILY 03/08/17 [ History] Past Medical History - Past Health History Medical/Surgical History: Denies Medical/Surgical History HEENT History: Reports: None Cardiovascular History: Reports: None Respiratory History: Reports: None Gastrointestinal History: Reports: None Genitourinary History: Reports: None SENIOR QUANTITY SURVEYOR History: Reports: Musculoskeletal History: Reports: None Neurological History: Reports: None Psychiatric History: Reports: None Endocrine/Metabolic History: Reports: None Insulin Pump Model and Solar Tech: None Hematologic History: Reports: None, Anemia, Other (See Below) Other Hematologic History: during Immunologic History: Reports: None Oncologic (Cancer) History: Reports: None Dermatologic History: Reports: None - Infectious Disease History Infectious Disease History: Reports: None - Past Surgical History Head Surgeries/Procedures: Reports: None Social & Family History - Family History Family Medical History: Noncontributory - Tobacco Use Smoking Status *Q: Never Smoker - Caffeine Use Caffeine Use: Reports: None - Recreational Drug Use Recreational Drug Use: No ED ROS GENERAL - Review of Systems Review Of Systems: Comprehensive ROS is negative, except as noted in HPI. ED EXAM, GENERAL - Physical Exam Exam: See Below (see dictation) Course - Vital Signs Last Recorded V/S: Last Vital Signs Temp 36.3 C 03/17/19 20:37 Pulse 89 03/17/19 21:38 Resp 18 03/17/19 21:38 BP 128/77 03/17/19 21:38 Pulse Ox 100 03/17/19 21:38 - Orders/Labs/Meds Orders: Active Orders 24 hr Category Date Time Status OB 1st Tri Sgl 1st Gest [US] Stat Exams 03/17/19 21:13 Taken CULTURE URINE [] Stat Lab 03/17/19 20:40 Received Labs: Laboratory Tests 03/17/19 03/17/19 03/17/19 Range/Units 20:40 20:57 20:57 WBC 7.18 (4.0-11.0) K/uL RBC 4.81 (4.30-5.90) M/uL Hgb 12.7 (12.0-16.0) g/dL Hct 37.3 (36.0-46.0) % MCV 77.5 L (80.0-98.0) fL MCH 26.4 L (27.0-32.0) pg MCHC 34.0 (31.0-37.0) g/dL RDW Std Deviation 46.4 (28.0-62.0) fl RDW Coeff of Karl 16 H (11.0-15.0) % Plt Count 337 (150-400) K/uL MPV 9.40 (7.40-12.00) fL Neut % (Auto) 56.9 (48.0-80.0) % Lymph % (Auto) 35.1 (16.0-40.0) % [place] % (Auto) 6.3 (0.0-15.0) % Eos % (Auto) 1.1 (0.0-7.0) % Baso % (Auto) 0.6 (0.0-1.5) % Neut # (Auto) 4.1 (1.4-5.7) K/uL Lymph # (Auto) 2.5 H (0.6-2.4) K/uL [place] # (Auto) 0.5 (0.0-0.8) K/uL Eos # (Auto) 0.1 (0.0-0.7) K/uL Baso # (Auto) 0.0 (0.0-0.1) K/uL Nucleated RBC % 0.0 /100WBC Nucleated RBCs # 0 K/uL Sodium 134 L (136-145) mmol/L Potassium 3.3 L (3.5-5.1) mmol/L Chloride 99 (98-107) mmol/L Carbon Dioxide 24.2 (21.0-32.0) mmol/L BUN 8 (7.0-18.0) mg/dL Creatinine 0.7 (0.6-1.0) mg/dL Est Cr Clr Drug Dosing 107.67 mL/min Estimated GFR (MDRD) > 60.0 ml/min Glucose 89 (74-106) mg/dL Calcium 9.7 (8.5-10.1) mg/dL Total Bilirubin 0.3 (0.2-1.0) mg/dL AST 15 (15-37) IU/L ALT 14 (14-63) IU/L Alkaline Phosphatase 72 (46-116) U/L Total Protein 8.7 H (6.4-8.2) g/dL Albumin 3.5 (3.4-5.0) g/dL Globulin 5.2 H (2.6-4.0) g/dL Albumin/Globulin Ratio 0.7 L (0.9-1.6) HCG, Qual (NEG) HCG, Quant 84698.0 mIU/mL Urine Color YELLOW Urine Appearance CLEAR Urine pH 5.5 (5.0-8.0) Ur Specific [place] >= 1.030 (1.001-1.035) Urine Protein 100 H (NEGATIVE) mg/dL Urine Glucose (UA) NEGATIVE (NEGATIVE) mg/dL Urine Ketones 40 H (NEGATIVE) mg/dL Urine Occult Blood LARGE H (NEGATIVE) Urine Nitrite NEGATIVE (NEGATIVE) Urine Bilirubin NEGATIVE (NEGATIVE) Urine Urobilinogen 0.2 (<2.0) EU/dL Ur Leukocyte Esterase SMALL H (NEGATIVE) Urine RBC 60-100 (0-2/HPF) Urine WBC 65-85 (0-5/HPF) Ur Epithelial Cells FEW (NONE-FEW) Amorphous Sediment FEW (NEGATIVE) Urine Bacteria 2+ H (NEGATIVE) Urine Mucus FEW (NONE-MOD) Blood Type 03/17/19 03/17/19 Range/Units 20:57 20:57 WBC (4.0-11.0) K/uL RBC (4.30-5.90) M/uL Hgb (12.0-16.0) g/dL Hct (36.0-46.0) % MCV (80.0-98.0) fL MCH (27.0-32.0) pg MCHC (31.0-37.0) g/dL RDW Std Deviation (28.0-62.0) fl RDW Coeff of Karl (11.0-15.0) % Plt Count (150-400) K/uL MPV (7.40-12.00) fL Neut % (Auto) (48.0-80.0) % Lymph % (Auto) (16.0-40.0) % [place] % (Auto) (0.0-15.0) % Eos % (Auto) (0.0-7.0) % Baso % (Auto) (0.0-1.5) % Neut # (Auto) (1.4-5.7) K/uL Lymph # (Auto) (0.6-2.4) K/uL [place] # (Auto) (0.0-0.8) K/uL Eos # (Auto) (0.0-0.7) K/uL Baso # (Auto) (0.0-0.1) K/uL Nucleated RBC % /100WBC Nucleated RBCs # K/uL Sodium (136-145) mmol/L Potassium (3.5-5.1) mmol/L Chloride (98-107) mmol/L Carbon Dioxide (21.0-32.0) mmol/L BUN (7.0-18.0) mg/dL Creatinine (0.6-1.0) mg/dL Est Cr Clr Drug Dosing mL/min Estimated GFR (MDRD) ml/min Glucose (74-106) mg/dL Calcium (8.5-10.1) mg/dL Total Bilirubin (0.2-1.0) mg/dL AST (15-37) IU/L ALT (14-63) IU/L Alkaline Phosphatase (46-116) U/L Total Protein (6.4-8.2) g/dL Albumin (3.4-5.0) g/dL Globulin (2.6-4.0) g/dL Albumin/Globulin Ratio (0.9-1.6) HCG, Qual POSITIVE H (NEG) HCG, Quant mIU/mL Urine Color Urine Appearance Urine pH (5.0-8.0) Ur Specific [place] (1.001-1.035) Urine Protein (NEGATIVE) mg/dL Urine Glucose (UA) (NEGATIVE) mg/dL Urine Ketones (NEGATIVE) mg/dL Urine Occult Blood (NEGATIVE) Urine Nitrite (NEGATIVE) Urine Bilirubin (NEGATIVE) Urine Urobilinogen (<2.0) EU/dL Ur Leukocyte Esterase (NEGATIVE) Urine RBC (0-2/HPF) Urine WBC (0-5/HPF) Ur Epithelial Cells (NONE-FEW) Amorphous Sediment (NEGATIVE) Urine Bacteria (NEGATIVE) Urine Mucus (NONE-MOD) Blood Type A POSITIVE Departure - Departure Disposition: Home, Self-Care 01 Clinical Impression: Vaginal bleeding during , demise, Urinary tract infection - Discharge Information Referrals: PCP,None [Primary Care Provider] - Forms: ED Department Discharge Additional Instructions: The following information is given to patients seen in the emergency department who are being discharged to home. This information is to outline your options for follow-up care. We provide all patients seen in our emergency department with a follow-up referral. The need for follow-up, as well as the timing and circumstances, are variable depending upon the specifics of your emergency department visit. If you don't have a primary care physician on staff, we will provide you with a referral. We always advise you to contact your personal physician following an emergency department visit to inform them of the circumstance of the visit and for follow-up with them and/or the need for any referrals to a consulting specialist. The emergency department will also refer you to a specialist when appropriate. This referral assures that you have the opportunity for follow-up care with a specialist. All of these measure are taken in an effort to provide you with optimal care, which includes your follow-up. Under all circumstances we always encourage you to contact your private physician who remains a resource for coordinating your care. When calling for follow-up care, please make the office aware that this follow-up is from your recent emergency room visit. If for any reason you are refused follow-up, please contact the [facility] Emergency Department at and asked to speak to the emergency department charge nurse. Celi as prescribed follow-up in a.m. with SENIOR QUANTITY SURVEYOR return as needed as discussed activity as tolerated as discussed Sepsis Event Note - Evaluation Sepsis Screening Result: No Definite Risk - Focused Exam Vital Signs: Vital Signs Temp Pulse Resp BP Pulse Ox 03/17/19 21:38 89 18 128/77 100 03/17/19 20:37 36.3 C 85 18 126/86 100 Date Exam was Performed: 03/17/19 Time Exam was Performed: 21:20 <León Sawyer - Last Filed: 03/17/19 22:17> Course - Vital Signs Text/Narrative:: Patient's emergency department course has been unremarkable ultrasound demonstrated demise with a 9 week intrauterine and no cardiac activity this was discussed with patient and I also did contact SENIOR QUANTITY SURVEYOR Dr. Torres who will see the patient in the office tomorrow Departure - Departure Time of Disposition: 22:16 Sepsis Event Note - Focused Exam Date Exam was Performed: 03/17/19 Time Exam was Performed: 22:15
[2019-03-17 21:46] LABS: BLOOD UREA NITROGEN,BUN 8 mg/dL (7.0-18.0); CARBON DIOXIDE,CO2 24.2 mmol/L (21.0-32.0); CHLORIDE,CL 99 mmol/L (98-107); GLUCOSE RANDOM 89 mg/dL (74-106); POTASSIUM,K 3.3 mmol/L (3.5-5.1); SODIUM,NA 134 mmol/L (136-145)
--- NOTE | 2019-03-17 22:27 | US ---
INDICATION: Bleeding TECHNIQUE: Ultrasound OB pelvis transabdominal and transvaginal. Real-time gonzales-scale imaging of the pelvis was performed. COMPARISON: None available FINDINGS: There is an intrauterine gestational sac containing a pole with a crown-rump length of 25 mm, corresponding to 9 weeks and 2 days. No cardiac activity is documented. A yolk sac is not seen. The right ovary measures 1.5 x 2.1 x 1.1 cm and the left ovary measures 2.7 x 2.5 x 1.3 cm. Small free fluid is noted. IMPRESSION: An intrauterine gestation at 9 weeks and 2 days by crown-rump length, without cardiac activity, consistent with demise. Dictated by Fahad Pena MD @ 03/17/2019 10:25:19 PM Dictated by: Fahad Pena MD @ 03/17/2019 22:25:27 (Electronically Signed)
== END 2019-03-17 22:58 | disposition home or self-care (01) ==
LOC: MW.ED 19:55
DX: O20.9 Hemorrhage in early pregnancy, unspecified (principal); O23.41 Unspecified infection of urinary tract in pregnancy, first trimester
CPT/HCPCS: 36415; 76801; 76801-26; 80053; 81001; 84702; 84703; 85025; 86900; 86901; 87086; 99283; 99284-25